=== PATIENT | male | born 1965 | race Caucasian/White ===

== ENCOUNTER 2016-11-04 12:07 | Inpatient (IN) | payer MEDICAID ==
[~2016-11-04] VITALS: Ht 190.5 cm; Wt 104.3 kg
--- NOTE | ~2016-11-04 | OP ---
PATIENT NAME: JERAMIE RCIO MEDICAL RECORD: [id number] :63 LOCATION:[id number] ADMISSION DATE:11/04/16 SURGEON: SCOOBY STERN MD DATE OF OPERATION: 11/05/2016 PREOPERATIVE DIAGNOSIS: Open wound to the left thumb. POSTOPERATIVE DIAGNOSIS: Open wound to the left thumb. PROCEDURE: Extensive irrigation and debridement of the left thumb with closure. SURGEON: Scooby Stern MD. ANESTHESIA: General. INTRAOPERATIVE COMPLICATIONS: None. SUMMARY OF PATHOLOGIC FINDINGS: Mr. Rico had essentially a very jagged table saw injury that required operative debridement that included skin, subcutaneous tissue, portions of fat, fascia, muscle and bone. OPERATIVE SUMMARY IN DETAIL: After obtaining the appropriate orthopedic surgery consent as well as anesthetic consultation, evaluation and clearance, the patient was brought to the operating room and placed on the operating table in supine position. After general laryngeal mask was administered, tourniquet was placed about the proximal aspect of the left upper extremity. Left upper extremity was prepped and draped in routine sterile fashion. The arm was elevated and exsanguinated, tourniquet was inflated to 250 mmHg. Copious bulb syringe was followed by gentle removal of what appeared to be foreign and metallic debris. Multiple areas of skin were removed sharply with the scalpel. Curettage was utilized to be sure that the entire wound was cleaned. The flexor tendon to the thumb was intact with only minimal amount of injury. Having completed the irrigation, multiple 4-0 Prolenes were placed in this laceration that extended back into his thenar space. Having completed this, sterile dressings were applied. The patient was awakened, LMA was removed and he was taken to the recovery room in stable condition. All final needle and sponge counts were correct. TRANSINT:[id number] Voice Confirmation ID: [id number] DOCUMENT ID: [id number] SCOOBY STERN MD CC: [id number] DICTATION DATE: 11/30/16 1344 [employer]: 11/30/16 1702 DIS IN 11/05/16 [id number] [place] [address]
[2016-11-04 13:35] LABS: BASOPHILS 0.5 % (0-2); EOSINOPHILS 5.9 % (0-7); HEMOGLOBIN 12.5 g/dL (13.5-17.5); IMMATURE GRANULOCYTES 0.4 % (0-5); LYMPHOCYTES 24.3 % (15-50); MCH 29.4 pg (26.0-34.0); MCHC 33.8 g/dL (31.0-37.0); MCV 87.1 fL (80.0-100.0); MEAN PLATELET VOLUME 9.2 fL (7.4-10.4); MONOCYTES 8.9 % (2-11); PLATELET COUNT 187 10x3/uL (130-400); RBC 4.25 10x6/uL (4.20-6.10); RDW 12.9 % (11.5-14.5); WBC 7.8 10x3/uL (4.8-10.8)
[2016-11-04 13:45] LABS: APTT 27.5 SECONDS (22.8-39.4); INR 0.9 (0.85-1.17)
[2016-11-04 13:49] LABS: ALBUMIN 3.4 g/dL (3.4-5.0); ANION GAP 15.8 mmol/L (8-16); BILIRUBIN - TOTAL 0.21 mg/dL (0.2-1.3); CALCIUM 9.2 mg/dL (8.5-10.1); CARBON DIOXIDE 24.5 mmol/L (21.0-32.0); CREATININE - SERUM 1.7 mg/dL (0.6-1.3); POTASSIUM - SERUM 5.3 mmol/L (3.5-5.1); PROTEIN - SERUM 7.7 g/dL (6.4-8.2)
--- NOTE | 2016-11-04 15:30 | NUR ---
ASSESSMENT PER ADMIT PACK. ORIENTATION TO ROOM .HEPI CLENS CLOTHS AND GOWN TO PATIENT.CALL LIGHT IN REACH.NPO
[2016-11-04] MEDS ORDERED: ZOCOR20 MG PO (15:46)
[2016-11-04] MEDS ORDERED: LYRICA200 MG PO (15:46)
[2016-11-04] MEDS ORDERED: LISINOPRIL10 MG PO (15:47)
[2016-11-04] MEDS ORDERED: TANZEUM50 MG/0.5 SC (15:49)
[2016-11-04] MEDS ORDERED: JENTADUETO 2.51 EACH PO (15:49)
[2016-11-04 15:55] VITALS: BP 168/98; Ht 190.5 cm; Wt 104.3 kg
[2016-11-04 16:30] VITALS: BP 168/98
--- NOTE | 2016-11-04 18:45 | NUR ---
STILL NPO.REMAINS WITHOUT DISTRESS.CALL LIGHT IN REACH
[2016-11-04 19:00] VITALS: BP 178/105
--- NOTE | 2016-11-04 19:10 | NUR ---
DR STERN IN TO SEE PATIENT. OR SCHEDULED FOR AM. DRESSING TO LEFT HAND INTACT WITHOUT DRAINAGE NOTED. IV INFUSING TO RIGHT FOREARM WITHOUT REDNESS OR EDEMA NOTED. CL IN REACH.
[2016-11-05 04:00] VITALS: BP 166/103
--- NOTE | 2016-11-05 05:10 | NUR ---
AWAKE,ALERT.NO COMPLIANTS. REMAINS NPO FOR OR.
--- NOTE | 2016-11-05 07:20 | NUR ---
ASSESSMENT PER FLOW SHEET.PT HAS BEEN NPO FOR SURGERY TODAY.SLIGHT BLOODY DRAINAGE NOTED ON LEFT THUMB DRESSING.TO OR VIA BED.
[2016-11-05] MEDS ORDERED: CIPRO500 MG PO (08:20)
[2016-11-05] MEDS ORDERED: HYDROCODONE-APA1 TAB PO (08:21)
[2016-11-05 09:00] VITALS: BP 121/81
--- NOTE | 2016-11-05 09:02 | NUR ---
BACK FROM OR.VSS STABLE.DRESSING TO LEFT HAND CLEAN,DRY AND INTACCT.MONITOR
[2016-11-05 15:41] VITALS: BP 155/97
--- NOTE | 2016-11-05 15:49 | NUR ---
DISCHARGE INSTRUCTIONS,STATES UNDERSTANDING.IV DCD WITH CATH INTACT.WAITING ON RIDE HOME.
--- NOTE | 2016-11-05 16:02 | NUR ---
LEFT UNIT VIA WHEELCAHIR FOR TRANSPORT HOME
== END 2016-11-05 16:03 | disposition home or self-care (01) | DRG 514 ==
LOC: D.ER 12:07 → D.MS 15:09
PROVIDERS: Nurse Practitioner Acute Care; ADMIT Orthopaedic Surgery
PROC: 0JBK0ZZ Excision of Left Hand Subcutaneous Tissue and Fascia, Open Approach (ICD-10-PCS; principal; 2016-11-05 15:00)
DX: S62.525B Nondisplaced fracture of distal phalanx of left thumb, initial encounter for open fracture (principal); W31.2XXA Contact with powered woodworking and forming machines, initial encounter; I10 Essential (primary) hypertension; E11.9 Type 2 diabetes mellitus without complications; J44.9 Chronic obstructive pulmonary disease, unspecified

== ENCOUNTER → 2018-03-04 16:00 | Outpatient (CLI) | payer MEDICAID ==
[2016-11-04 15:55] VITALS: BMI 28.8
[~2018-03-04 16:00] MED LIST: CIPRO500 MG PO; HYDROCODONE-APA1 TAB PO; JENTADUETO 2.51 EACH PO; LISINOPRIL10 MG PO; LYRICA200 MG PO; TANZEUM50 MG/0.5 SC; ZOCOR20 MG PO
== END | disposition home or self-care (01) ==
LOC: D.RAD 16:00
DX: R22.42 Localized swelling, mass and lump, left lower limb (principal); M79.672 Pain in left foot

== ENCOUNTER 2018-12-02 12:34 | Observation (INO) | payer MEDICAID ==
[~2018-12-02] VITALS: Ht 190.5 cm; Wt 120.5 kg
[~2018-12-02 12:34] MED LIST changes: -LISINOPRIL10 MG PO; +LISINOPRIL40 MG PO
--- NOTE | 2018-12-02 12:48 | NUR ---
TRANSFER FROM ADMISSIONS BY W/C. CALL LIGHT IN REACH. WILL CONT. PLAN OF CARE.
[2018-12-02] MEDS ORDERED: PEPCID40 MG PO (12:57)
[2018-12-02] MEDS ORDERED: AMITRIPTYLINE100 MG PO (12:58)
[2018-12-02] MEDS ORDERED: TOPROL XL50 MG PO (13:18)
[2018-12-02 13:32] LABS: BASOPHILS 0.5 % (0-2); EOSINOPHILS 8.4 % (0-7); HEMATOCRIT 32.2 % (42.0-54.0); HEMOGLOBIN 10.8 g/dL (13.5-17.5); IMMATURE GRANULOCYTES 0.3 % (0-5); LYMPHOCYTES 35.4 % (15-50); MCHC 33.5 g/dL (31.0-37.0); MCV 86.6 fL (80.0-100.0); MEAN PLATELET VOLUME 9.2 fL (7.4-10.4); MONOCYTES 8.9 % (2-11); NEUTROPHILS 46.5 % (40-80); PLATELET COUNT 158 10x3/uL (130-400); RBC 3.72 10x6/uL (4.20-6.10); RDW 12.9 % (11.5-14.5); WBC 5.9 10x3/uL (4.8-10.8)
[2018-12-02 13:45] VITALS: BP 166/97; BMI 33.1
[2018-12-02 13:52] LABS: ALBUMIN 3.2 g/dL (3.4-5.0); ANION GAP 13.2 mmol/L (8-16); BILIRUBIN - TOTAL 0.23 mg/dL (0.2-1.3); CALCIUM 8.6 mg/dL (8.5-10.1); CARBON DIOXIDE 23.1 mmol/L (21.0-32.0); CREATININE - SERUM 2.2 mg/dL (0.6-1.3); POTASSIUM - SERUM 5.3 mmol/L (3.5-5.1); PROTEIN - SERUM 7.5 g/dL (6.4-8.2)
--- NOTE | 2018-12-02 14:25 | NUR ---
IV STARTED TO RIGHT HAND WITH 20 GAUGE CATH X 1 STICK AND FLUSHED WITH NS. 24 HR URINE STARTED. WILL CONT. PLAN OF CARE.
[2018-12-02 14:54] LABS: APPEARANCE CLEAR (CLEAR); BILIRUBIN NEGATIVE (NEGATIVE); COLOR YELLOW (YELLOW); GLUCOSE 1000 mg/dL (NEGATIVE); KETONE NEGATIVE (NEGATIVE); NITRITE NEGATIVE (NEGATIVE); PROTEIN 1+ mg/dL (NEGATIVE); SPECIFIC GRAVITY 1.015 (1.005-1.020); UROBILINOGEN NORMAL (NORMAL)
[2018-12-02 14:55] LABS: BACTERIA FEW /hpf (NONE SEEN); EPITHELIAL CELLS 0-5 /hpf (0-5)
--- NOTE | 2018-12-02 14:56 | NUR ---
BILAT SCDS ON ORDERED.
[2018-12-02 15:55] VITALS: Ht 190.5 cm; Wt 120.5 kg
[2018-12-02 16:54] LABS: COMPLEMENT C4 24.6 mg/dL (17.4-52.2)
[2018-12-02 17:08] LABS: CHOL - HDL RATIO 4.8 ratio (2.3-4.9); MAGNESIUM - SERUM 2.2 mg/dL (1.8-2.4)
[2018-12-02 17:18] VITALS: BP 148/86
--- NOTE | 2018-12-02 19:45 | NUR ---
PT SITTING UP IN BED WITHOUT DISTRESS, ALERT AND ORIENTED. DENIES PAIN. REQUESTED AND GIVEN ICE WATER. LUNGS CTA. BOWELS SOUNDS ACTIVE X4. DENIES ISSUES VOIDING. 24 HR URINE IN PROGRESS. SCDS IN PLACE BILAT. IV RIGHT HAND INFUSING NS @ 100. PT UP AD GRACIELA WITHOUT DIFFICULTY. DENIES OTHER NEEDS AT THIS TIME. CL IN REACH, WILL CTM
[2018-12-02 20:00] VITALS: BP 132/86
[2018-12-03] VITALS: BP 121/79
[2018-12-03 04:00] VITALS: BP 122/78
[2018-12-03 05:07] LABS: BASOPHILS 0.7 % (0-2); EOSINOPHILS 8.3 % (0-7); HEMATOCRIT 31.5 % (42.0-54.0); HEMOGLOBIN 10.6 g/dL (13.5-17.5); IMMATURE GRANULOCYTES 0.3 % (0-5); LYMPHOCYTES 35.8 % (15-50); MCH 29.4 pg (26.0-34.0); MCHC 33.7 g/dL (31.0-37.0); MCV 87.3 fL (80.0-100.0); MEAN PLATELET VOLUME 9.5 fL (7.4-10.4); MONOCYTES 10.5 % (2-11); NEUTROPHILS 44.4 % (40-80); PLATELET COUNT 147 10x3/uL (130-400); RBC 3.61 10x6/uL (4.20-6.10); RDW 13.2 % (11.5-14.5); WBC 6.1 10x3/uL (4.8-10.8)
--- NOTE | 2018-12-03 05:15 | NUR ---
NURSES AID POURED 550ML URINE INTO TOILET AND NOT 24HR COLLECTION TUB. 24HR URINE STARTED OVER AT THIS TIME
[2018-12-03 05:25] LABS: ALBUMIN 2.9 g/dL (3.4-5.0); BILIRUBIN - TOTAL 0.21 mg/dL (0.2-1.3); CALCIUM 8.5 mg/dL (8.5-10.1); CARBON DIOXIDE 23.3 mmol/L (21.0-32.0); CREATININE - SERUM 1.8 mg/dL (0.6-1.3); POTASSIUM - SERUM 5.3 mmol/L (3.5-5.1); PROTEIN - SERUM 7.1 g/dL (6.4-8.2)
--- NOTE | 2018-12-03 07:00 | NUR ---
RECEIVED REPORT. ASSUMED CARE OF PATIENT. RESTING IN BED WIHT EYES OPEN. NO DISTRESS. IV FLUIDS INFUSING ORDERED. CALL LIGHT WITHIN REACH.
[2018-12-03 08:50] VITALS: BP 150/82
--- NOTE | 2018-12-03 11:13 | NUR ---
PATIENT UNHOOKED FOR SHOWER AT THIS TIME. NO DISTRESS.
--- NOTE | 2018-12-03 11:46 | NUR ---
NO DISTRESS. SITTING IN BED WITH ATTENTION TOWARDS BASEBALL GAME. NO DISTRESS.
[2018-12-03 12:30] VITALS: BP 146/77
[2018-12-03] MEDS ORDERED: TOPROL XL50 MG PO (14:14)
[2018-12-03] MEDS ORDERED: GLYBURIDE2.5 MG PO (14:17)
--- NOTE | 2018-12-03 16:00 | NUR ---
20 GAUGE IV REMOVED FROM RIGHT HAND. CATHETER TIP INTACT. NO BLEEDING FROM SITE. 2X2 GAUZE APPLIED AND SECURED WITH TAPE. TOLERATED IV REMOVAL WELL. TELEMETRY RETURNED TO RESIDENCE MANAGER
--- NOTE | 2018-12-03 16:15 | NUR ---
DISCHARGE INSTRUCTIONS PROVIDED TO PATIENT. PATIENT VERBLAIZED UNDERSTANDING OF ALL INSTRUCTIONS PROVIDED.
--- NOTE | 2018-12-03 16:34 | NUR ---
PATIENT LEFT UNIT AMBULATORY WITH ALL PERSONAL BELONGINGS AT THIS TIME. PATIENT DISCHARGED TO HOME. PATIENT DROVE HIMSELF TO THE HOSPITAL AND IS DRIVING HIMSELF HOME. NO DISTRESS UPON LEAVING UNIT.
--- NOTE | 2018-12-05 09:07 | MORECARE ---
CASE MANAGEMENT DISCHARGE SUMMARY PATIENT: JERAMIE WILDER UNIT: [id number] ADM DATE: 12/02/18 AGE: 53 : 63 SEX: M ROOM/BED: D.2108 AUTHOR: TONI COOPER PHYSICIAN: REFERRING PHYSICIAN: JACKI LOPEZ MD DATE OF SERVICE: 12/05/18 Discharge Plan Patient Name: JERAMIE WILDER [facility] 1965 Planned Disposition: Home Anticipated Discharge Date: 12/03/18 Discharge Date: 12/03/2018 Expected LOS: 1 Initial Reviewer: [email or web address] Initial Review Date: 12/05/2018 Generated: 12/05/18 10:07 am Patient Name: JERAMIE WILDER Page [id number] at 0907 All edits/amendments must be made on the electronic document DICTATION DATE: 12/05/18906 PATIENT SAFETY ATTENDANT: SHANNON 12/05/18906 RPT#: [id number] DC DATE:12/03/18 STATUS: DIS IN [facility] [address] [place] [address] END OF REPORT
[2018-12-05 10:10] LABS: ANA REFLEX - DBL STRANDED DNA 1 IU/mL (0-9); ANA REFLEX - DIRECT Negative (Negative)
[2018-12-05 17:08] LABS: SPE - A/G RATIO 0.8 (0.7-1.7); SPE - ALBUMIN 3.1 g/dL (2.9-4.4); SPE - ALPHA-1 GLOBULIN 0.2 g/dL (0.0-0.4); SPE - ALPHA-2 GLOBULIN 0.8 g/dL (0.4-1.0); SPE - BETA GLOBULIN 1.1 g/dL (0.7-1.3); SPE - GAMMA GLOBULIN 1.6 g/dL (0.4-1.8); SPE - M-SPIKE Not Observed g/dL (Not Observed); SPE - TOTAL PROTEIN 6.8 g/dL (6.0-8.5)
[2018-12-05 18:08] LABS: UPE RAND - ALBUMIN 59.9 % (()); UPE RAND - ALPHA 1 GLOBULIN 4.7 % (()); UPE RAND - ALPHA 2 GLOBULIN 8.2 % (()); UPE RAND - BETA GLOBULIN 13.8 % (()); UPE RAND - GAMMA GLOBULIN 13.3 % (())
== END 2018-12-03 16:45 | disposition home or self-care (01) ==
LOC: D.M2 12:34 → OBSVTIME 12:35 → D.M2 12-03 14:17
PROVIDERS: Internal Medicine; ADMIT Family Medicine; ATTEND Family Medicine
DX: E87.5 Hyperkalemia (principal); N17.9 Acute kidney failure, unspecified; I10 Essential (primary) hypertension